=== PATIENT | female | born 1955 | race Caucasian/White ===

== ENCOUNTER 2023-03-10 13:24 | Emergency (ER) | payer OTHER ==
[~2023-03-10] VITALS: Ht 142.2 cm; Wt 43.1 kg
--- NOTE | 2023-03-10 13:38 | NUR ---
[facility] [id number] "Alcoholic. Wants to stop. Last drank today." Awaiting MD covarrubias.
[2023-03-10 14:40] VITALS: BP 146/96
--- NOTE | 2023-03-10 14:40 | NUR ---
Patient discharged to home in stable condition. Written and verbal after care instructions given. Patient verbalizes understanding of instruction.
== END 2023-03-10 14:40 | disposition home or self-care (01) ==
LOC: ER 13:26
DX: F19.10 Other psychoactive substance abuse, uncomplicated (principal); Z59.00 Homelessness unspecified